=== PATIENT | male | born 1950 | race Caucasian/White ===

== ENCOUNTER 2017-10-29 10:40 | Emergency (ER) | payer MEDICARE, MEDICAID ==
--- NOTE | 2017-10-29 11:21 | Emergency Department Record ---
History of Present Illness - General Chief complaint: Rash Stated complaint: Rash Time Seen by Provider: 10/29/17 11:07 Source: Patient Mode of Arrival: Ambulatory Limitations: No limitations - History of Present Illness Initial comments: The patient is here due to a rash all over his body for 2 days. The rash is primarily on his arms and trunk and is very pruritic. He denies any new medicines, foods, or any recent illnesses. He describes the rash as small red papules all over. There has been no fever, ST, cough, swelling, CP, or SOB. MD complaint: Rash Onset/Timin -: Days(s) Location: Generalized Severity: Moderate Severity scale (1-10): 3 Associated symptoms: Itching Treatments Prior to Arrival: Benadryl - Related Data Previous Rx's Medication Instructions Recorded Ondansetron [Zofran Odt] 4 mg PO Q8H #6 tab.rapdis 05/02/15 Diphenhydramine HCl [Benadryl] 25 mg PO TID #15 capsule 10/29/17 Allergies Allergy/AdvReac Type Severity Reaction Status Date / Time Carbapenems Allergy Unknown HYPERSENSIT Verified 10/29/17 10:55 IVITY Cephalosporins Allergy Unknown HYPERSENSIT Verified 10/29/17 10:55 IVITY Penicillins Allergy Unknown ANAPHYLAXIS Verified 10/29/17 10:55 morphine Allergy ITCHING Verified 10/29/17 11:00 Travel Screening - Travel/Exposure Within Last 30 Days Have you traveled within the last 30 days?: No - Travel/Exposure Within Last Year Have you traveled outside the [place] in the last year?: No - Additonal Travel Details Have you been exposed to anyone with a communicable illness?: No - Travel Symptoms Symptom Screening: None Review of Systems Constitutional: Denies: Chills, Fever Eyes: Denies: Eye discharge ENT: Denies: Congestion Respiratory: Denies: Cough, Dyspnea Past Medical History - SOCIAL HISTORY Smoking Status: Never smoker Alcohol Use: None Alcohol Use Comment: since 1997 Drug Use: None - RESPIRATORY Hx Respiratory Disorders: Yes Hx Asthma: Yes - CARDIOVASCULAR Hx Cardio Disorders: Yes Hx Hypertension: Yes Comment:: heart valve surgery, aortic anuerysm - NEURO Hx Neuro Disorders: Yes Hx Neuropathy: Yes - GI Hx GI Disorders: Yes Hx Reflux: Yes Comment:: hernia repair - Hx Genitourinary Disorders: Yes Hx Prostate Problems: Yes - ENDOCRINE Hx Endocrine Disorders: No Hx Diabetes: No Hx Thyroid Disease: No - MUSCULOSKELETAL Hx Arthritis: Yes - PSYCH Hx Psych Problems: No - HEMATOLOGY/ONCOLOGY Hx Hematology/Oncology Disorders: No Family Medical History Any Significant Family History?: Yes Family Hx Comment (NOT TO BE USED IN PLACE OF ITEMS BELOW): not sure Hx Cancer: Father, Grandparents Hx Heart Disease: Grandparents Hx Kidney Disease: Father Physical Exam - General General Appearance: Alert, Oriented x3, Cooperative, No acute distress - Head Head exam: Atraumatic, Normocephalic, Normal inspection - Eye Eye exam: Normal appearance, PERRL - ENT Throat exam: Normal inspection. negative: Tonsillar erythema, Tonsillar exudate - Neck Neck exam: Normal inspection, Full ROM. negative: Tenderness - Respiratory Respiratory exam: Normal lung sounds bilaterally. negative: Respiratory distress - Cardiovascular Cardiovascular Exam: Regular rate, Normal rhythm, Other ([place] valve click.). negative: Normal heart sounds - GI/Abdominal GI/Abdominal exam: Soft, Normal bowel sounds. negative: Tenderness - Extremities Extremities exam: Normal inspection, Full ROM, Normal capillary refill. negative: Tenderness - Neurological Neurological exam: Alert, Normal gait. negative: Abnormal gait, Motor sensory deficit - Skin Skin exam: Rash (There are scattered erythematous papules to the arms and trunk minimally. They appear much improved from yesterday.). negative: Erythema, Petechiae, Urticaria Course Vital Signs 10/29/17 10:48 Temperature 98.1 F Pulse Rate 104 H Respiratory 18 Rate Blood Pressure 168/107 Pulse Ox 98 - Reevaluation(s) Reevaluation #1: The patient is doing well. He denies any new rash, itching, or any trouble breathing. He is resting comfortably and is ready for home. I did discuss the lab results with him and the need for F/U. I also did discuss the need to see his PCP next week to recheck his BP. The patient states he did not take his BP medicines today but will when he gets home. 10/29/17 12:18 10/29/17 13:05 Medical Decision Making - Data Complexity MDM Data: Labs Ordered and/or Reviewed - Lab Data Result diagrams: 10/29/17 11:25 10/29/17 11:25 Disposition Disposition: Discharge Clinical Impression: Dermatitis Disposition: Home, Self-Care Condition: (2) Stable Instructions: Acute Rash (ED) Additional Instructions: Please take Benadryl as directed for 5 days. Please see your PCP next week for recheck. Return to the ER for any problems. Prescriptions: Diphenhydramine HCl [Benadryl] 25 mg PO TID #15 capsule Forms: Patient Portal Access Time of Disposition: 12:20 Quality - Quality Measures Quality Measures: N/A - Blood Pressure Screening View Details: Yes Does Patient Have Any of the Following: No Blood Pressure Classification: Hypertensive Reading Systolic Measurement: 163 Diastolic Measurement: 116 Screening for High Blood Pressure: Patient Exclusion, Hx of HTN [[id number]]
[2017-10-29 11:33] LABS: HEMATOCRIT 36.6 % (42.0-52.0); HEMOGLOBIN 12.2 gm/dl (14.0-18.0); MEAN CELL VOLUME 88.6 fl (81-97); MEAN CORPUSCULAR HEMOGLOBIN 29.5 pg (27-33); MEAN CORPUSCULAR HGB CONC 33.3 g/dl (32-36); MEAN PLATELET VOLUME 9.8 fl (7.4-10.4); PLATELET COUNT 366 K/uL (130-400); RED BLOOD COUNT 4.13 M/uL (4.40-5.70); RED CELL DISTRIBUTION WIDTH 14.2 % (11.5-14.5); WHITE BLOOD COUNT W/O DIFF 9.4 K/uL (4.2-12.2)
[2017-10-29 11:42] LABS: BLOOD UREA NITROGEN 17 mg/dL (8-23); CREATININE 1.1 mg/dL (0.7-1.2); EST GLOMERULAR FILTRATION RATE > 60 mL/min
[2017-10-29 11:43] LABS: TOTAL PROTEIN 6.9 g/dL (6.6-8.7)
[2017-10-29 11:44] LABS: GLUCOSE,RANDOM 244 mg/dL (74-109)
[2017-10-29 11:45] LABS: INR 3.15; PARTIAL THROMBOPLASTIN TIME 45.5 SECONDS (24.5-39.1); PROTHROMBIN TIME (PATIENT) 34.4 SECONDS (9.5-12.1)
[2017-10-29 11:47] LABS: ALKALINE PHOSPHATASE 79 U/L (40-129); ALT/SGPT 19 U/L (<41); AST/SGOT 26 U/L (10.0-50.0)
[2017-10-29 11:51] LABS: ALB/GLOB RATIO 1.4 (1.1-1.8)
== END 2017-10-29 12:35 | disposition home or self-care (01) ==
LOC: ER 10:40
DX: L30.9 Dermatitis, unspecified (principal); R53.83 Other fatigue; I10 Essential (primary) hypertension; Z79.01 Long term (current) use of anticoagulants
CPT/HCPCS: 80053; 85027; 85610; 85730; 86140; 99283